=== PATIENT | male | born 1965 ===

== ENCOUNTER 2024-12-28 06:30 | Day surgery (SDC) | payer OTHER ==
[2024-12-22 09:10] LABS: PH,URINE 6.5 (5.0-8.0); URINE APPEARANCE Clear; URINE BILIRRUBIN Negative (NEGATIVE); URINE BLOOD Negative; URINE COLOR Yellow; URINE GLUCOSE Negative (NEGATIVE); URINE KETONE Negative (NEGATIVE); URINE LEUKOCYTE Negative; URINE NITRATE Negative; URINE PROTEIN Negative (NEGATIVE); URINE UROBILINOGEN 0.2 E.U./dl
[2024-12-22 09:18] LABS: HEMATOCRIT 43.7 % (39.0-48.0); HEMOGLOBIN 14.5 g/dL (13-16.00); MEAN CELL VOLUME 88.2 fL (80.0-100.00); MEAN CORPUSCULAR HEMOGLOBIN 29.4 pg (27.00-32.0); MEAN CORPUSCULAR HGB CONC 33.3 g/dl (32.0-36.0); PLATELET COUNT 190 K/uL (150-450); RED BLOOD COUNT 4.95 M/uL (4.00-6.00); RED CELL DISTRIBUTION WIDTH 13.3 % (11.5-14.5)
[2024-12-22 09:19] LABS: URINE BACTERIA 4.8 uL (0.0-1933); URINE RBC 16.4 uL (0.0-20.8)
[2024-12-22 09:25] LABS: URINE EPITHELIAL CELLS 0.3 uL (0.0-38.8); URINE WBC 0.4 uL (0.0-23.2)
[2024-12-22 09:34] LABS: PARTIAL THROMBOPLASTIN TIME 27.1 SECONDS (22.0-34.0); PROTHROMBIN TIME 10.9 SECONDS (9.0-11.5)
[2024-12-22 09:40] VITALS: BP 135/88
[2024-12-22 10:53] LABS: ALBUMIN 3.8 gm/dL (3.4-5.0); BILIRUBIN TOTAL 0.62 mg/dL (0.3-1.2); CREATININE SERUM 0.89 mg/dL (0.70-1.30); GFR 88.1; GLOBULINA 3.5 G/DL (2.4-3.5); POTASSIUM 4.61 mEq/L (3.5-5.1); TOTAL PROTEIN 7.3 gm/dL (6.4-8.2)
[~2024-12-28] VITALS: Ht 193 cm; Wt 99.8 kg
[~2024-12-28 06:30] MED LIST: SYNTHROID150 MCG PO
[2024-12-28] MEDS ORDERED: CEFAZOLIN SODIUM 1,000 MG VIAL ONE (10:21)
[2024-12-28] MEDS ORDERED: MORPHINE SULFATE 4 MG/ML CARTRIDGE IV PRN (10:45)
[2024-12-28] MEDS ORDERED: CEFAZOLIN SODIUM 1,000 MG VIAL IV SCH (12:00)
[2024-12-28] MEDS ORDERED: ACETAMINOPHEN 500 MG GEL..CAP PO SCH (12:00)
[2024-12-28] MEDS ORDERED: MORPHINE SULFATE 4 MG/ML VIAL IV ONE ×3 (13:15→14:15)
[2024-12-28] MEDS ORDERED: ENOXAPARIN SODIUM 40 MG/0.4 ML SYRINGE SUBCUTANEO SCH (17:00)
[2024-12-28] MEDS ORDERED: FAMOTIDINE/PF 20 MG/2 ML VIAL IV SCH (21:00)
== END 2024-12-28 16:05 | disposition home or self-care (01) ==
LOC: CIR.AMB 06:30
PROVIDERS: ATTEND Surgery
DX: K42.9 Umbilical hernia without obstruction or gangrene (principal); Z91.010 Allergy to peanuts; E03.8 Other specified hypothyroidism